=== PATIENT | female | born 2005 | race Caucasian/White ===

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

== ENCOUNTER 2024-06-23 06:04 | Day surgery (SDC) | payer BC ==
[2024-06-23] MEDS: Nozin Nasal Sanitizer NASBOTH ONE (06:54)
[2024-06-23] MEDS: Lactated Ringers 1,000 ML IV SCH (06:56)
[2024-06-23] MEDS ORDERED: Propofol 200 MG/20 ML SDV ONE (07:06)
[2024-06-23] MEDS ORDERED: Midazolam 1 MG/ML 2 ML SDV ONE (07:06)
[2024-06-23] MEDS ORDERED: fentaNYL 100 MCG/2 ML SDV ONE (07:06)
[2024-06-23] MEDS ORDERED: Dexamethasone 4 MG/ML SDV ONE (07:08)
[2024-06-23] MEDS ORDERED: Ondansetron 4 MG/2 ML SDV ONE (07:08)
[2024-06-23] MEDS: ceFAZolin 1 GM in Premix Bag 1 BAG IV ONE (07:45)
[2024-06-23] MEDS ORDERED: Ketorolac 30 MG/ML SDV ONE (08:12)
[2024-06-23] MEDS: Bupivacaine 0.5% 30 ML SDV ONE (08:15)
[2024-06-23] MEDS: Acetaminophen/HYDROcodone 325-5 MG Tab PO PRN (09:34)
[2024-06-23 09:37] VITALS: BP 109/59; PULSE 86
== END 2024-06-23 10:05 | disposition home or self-care (01) ==
LOC: JP.SDS 06:04
PROVIDERS: ATTEND Specialist
DX: M22.42 Chondromalacia patellae, left knee (principal); M89.38 Hypertrophy of bone, other site; Z88.1 Allergy status to other antibiotic agents
CPT/HCPCS: 01400; 29877; 81025; A9270; J0665; J0689; J1100; J1885; J2250; J2405; J2704; J3010; J7120

== ENCOUNTER 2024-10-20 09:32 | Emergency (ER) | payer BC ==
[2024-10-20 10:40] LABS: BASOPHILS ABSOLUTE AUTO 0.04 K/uL (0.00-0.10); BASOPHILS PERCENT AUTO 0.8 % (0.1-1.3); EOSINOPHILS ABSOLUTE AUTO 0.04 K/uL (0.00-0.40); EOSINOPHILS PERCENT AUTO 0.8 % (0.0-5.4); HEMATOCRIT 38.1 % (34.3-46.0); HEMOGLOBIN 12.8 g/dL (11.2-15.5); IMMATURE GRAN PERCENT AUTO 0.2 % (0.0-0.7); LYMPHOCYTES ABSOLUTE AUTO 1.23 K/uL (0.8-3.3); LYMPHOCYTES PERCENT AUTO 23.4 % (11.4-47.7); MEAN CORPUSCULAR HEMOGLOBIN 30.5 pg (31.6-35.5); MEAN CORPUSCULAR HGB CONC 33.6 g/dL (31.6-35.5); MEAN CORPUSCULAR VOLUME 90.7 fL (81.4-99.0); MONOCYTES ABSOLUTE AUTO 0.25 K/uL (0.20-0.90); MONOCYTES PERCENT AUTO 4.8 % (3.3-12.6); NEUTROPHILS ABSOLUTE AUTO 3.69 K/uL (1.0-7.6); PLATELET COUNT,PLT 214 K/uL (130-375); WHITE BLOOD CELL COUNT,WBC 5.3 K/uL (3.2-11.0)
[2024-10-20 10:41] LABS: IMMATURE GRAN ABSOLUTE AUTO 0.01 K/uL (0.00-0.23)
[2024-10-20 11:01] LABS: A/G RATIO 1.1 (1.2-2.2); ALANINE AMINOTRANSFERASE,ALT 21 U/L (12-78); ALBUMIN 3.8 g/dL (3.4-5.0); ALKALINE PHOSPHATASE 47 U/L (46-116); ANION GAP 9.7 mmol/L (5.0-14.0); ASPARTATE AMNIOTRANSFERASE,AST 16 U/L (15-37); BILIRUBIN TOTAL 0.6 mg/dL (0.2-1.0); BLOOD UREA NITROGEN,BUN 11 mg/dL (7-18); CALCIUM 9.5 mg/dL (8.5-10.1); CARBON DIOXIDE,CO2 29 mmol/L (21-32); CHLORIDE,CL 101 mmol/L (100-108); CREATININE 0.8 mg/dL (0.6-1.0); EST CRCL DRUG DOSING (CG) 81.24 mL/min; ESTIMATED GFR 109 mL/min (>60); GLUCOSE RANDOM 88 mg/dL (74-106); POTASSIUM,K 4.1 mmol/L (3.6-5.2); PROTEIN TOTAL,TP 7.2 g/dL (6.4-8.2); SODIUM,NA 140 mmol/L (140-148)
[2024-10-20 11:02] VITALS: BP 112/68; PULSE 79
== END 2024-10-20 12:14 | disposition home or self-care (01) ==
LOC: JP.ED 09:32
DX: R55 Syncope and collapse (principal); Z79.899 Other long term (current) drug therapy; Z88.0 Allergy status to penicillin
CPT/HCPCS: 36415; 70450; 70450-26; 80053; 85025; 85379; 93005; 99284

== ENCOUNTER 2024-12-27 10:43 | Emergency (ER) | payer BC ==
[2024-12-27 10:58] VITALS: BP 105/63; PULSE 97
== END 2024-12-27 12:00 | disposition home or self-care (01) ==
LOC: JP.ED 10:43
DX: H54.62 Unqualified visual loss, left eye, normal vision right eye (principal); Z88.0 Allergy status to penicillin; Z79.899 Other long term (current) drug therapy
CPT/HCPCS: 99283

== ENCOUNTER 2025-04-18 06:20 | Day surgery (SDC) | payer BC ==
[2025-04-18] MEDS: Lactated Ringers 1,000 ML IV SCH (06:43)
[2025-04-18 06:51] LABS: PLATELET COUNT,PLT 218.0 K/uL (130-375); RED BLOOD CELL COUNT 4.24 M/uL (3.77-5.24); WHITE BLOOD CELL COUNT,WBC 6.2 K/uL (3.2-11.0)
[2025-04-18 07:06] LABS: BLOOD UREA NITROGEN,BUN 13.0 mg/dL (7-18); CARBON DIOXIDE,CO2 25.0 mmol/L (21-32); CHLORIDE,CL 109.0 mmol/L (100-108); CREATININE 0.7 mg/dL (0.6-1.0); EST CRCL DRUG DOSING (CG) 92.08 mL/min; ESTIMATED GFR 127.0 mL/min (>60); GLUCOSE RANDOM 98.0 mg/dL (74-106); POTASSIUM,K 3.9 mmol/L (3.6-5.2); SODIUM,NA 147.0 mmol/L (140-148)
[2025-04-18] MEDS ORDERED: Midazolam 1 MG/ML 2 ML SDV ONE (07:25)
[2025-04-18] MEDS ORDERED: fentaNYL 100 MCG/2 ML SDV ONE (07:25)
[2025-04-18] MEDS ORDERED: Propofol 200 MG/20 ML SDV ONE (07:26)
[2025-04-18] MEDS ORDERED: Ondansetron 4 MG/2 ML SDV ONE (07:26)
[2025-04-18] MEDS ORDERED: Dexamethasone 4 MG/ML SDV ONE (07:26)
[2025-04-18] MEDS: Nozin Nasal Sanitizer NASBOTH ONE (07:38)
[2025-04-18] MEDS ORDERED: Ketorolac 30 MG/ML SDV ONE (08:10)
[2025-04-18] MEDS: Acetaminophen/HYDROcodone 325-5 MG Tab PO ONE (09:40)
[2025-04-18 09:43] VITALS: BP 106/69; PULSE 67
== END 2025-04-18 09:49 | disposition home or self-care (01) ==
LOC: JP.SDS 06:20
PROVIDERS: ATTEND Specialist
DX: M65.162 Other infective (teno)synovitis, left knee (principal); M25.862 Other specified joint disorders, left knee; Z79.899 Other long term (current) drug therapy
CPT/HCPCS: 29875; 36415; 80048; 84703; 85027; A9270; J0665; J0690; J1100; J1885; J2250; J2405; J2704; J3010; J7120